=== PATIENT | male | born 1945 | race Caucasian/White ===

== ENCOUNTER → 2017-07-04 | Outpatient (CLI) | payer MEDICARE, OTHER | LOC: KOH-I 11:37 | DX: R10.9 Unspecified abdominal pain (principal); R06.02 Shortness of breath | CPT/HCPCS: 74022 ==

== ENCOUNTER → 2017-07-07 | Outpatient (CLI) | payer MEDICARE, OTHER | LOC: KOH-I 08:54 | DX: R10.11 Right upper quadrant pain (principal); K22.9 Disease of esophagus, unspecified; R93.2 Abnormal findings on diagnostic imaging of liver and biliary tract | CPT/HCPCS: 71270; 74178; 76700; Q9962 ==